=== PATIENT | female | born 1960 | race Caucasian/White ===

== ENCOUNTER 2020-08-21 20:23 | Emergency (ER) | payer OTHER ==
[2020-08-21] MEDS ORDERED: Sodium Chloride 0.9% 1000 ML 1,000 ML IV STA (21:54)
[2020-08-21 22:00] VITALS: PULSE 113
[2020-08-21] MEDS ORDERED: Sodium Chloride 0.9% 1000 ML 1,000 ML ONE (22:24)
[2020-08-21 22:44] LABS: Absolute Neutrophil Ct (ANC) 13.23 (1.4-6.9); BASOPHIL % 0.2 % (0.0-0.4); Basophil (Absolute #) 0.04 (0-0.4); Eosinophil % 0.6 % (0.00-5.0); Hematocrit 41.5 % (35-47); Hemoglobin 13.6 gm/dl (12.0-16.0); Lymphocyte (Absolute #) 1.49 (1.0-4.6); Lymphocytes % 9.2 % (24.0-44.0); Mean Cell Volume 98.3 fl (78-100); Mean Corpuscular Hemoglobin 32.2 pg (26-32); Mean Corpuscular Hgb Concent. 32.8 g/dl (32-36); Mean Platelet Volume 10.3 fl (7.5-11.0); Monocyte (Absolute #) 1.27 (0.0-1.3); Monocytes % 7.9 % (0.0-12.0); Neutrophil % 82.1 % (36.0-66.0); Platelet Count 355 K/mm3 (150-450); Red Blood Count 4.22 M/mm3 (4.1-5.4); Red Cell Distribution Width 13.1 % (11.5-14.0); White Blood Count 16.1 K/mm3 (4.0-10.5)
[2020-08-21 22:49] LABS: ALBUMIN 4.3 g/dL (3.5-5.0); ALKALINE PHOSPHATASE 88 U/L (38-126); ANION GAP 14.9 MEQ/L (5-15); BLOOD UREA NITROGEN 16 mg/dL (7-17); CHLORIDE 101 mmol/L (98-107); Calcium 9.5 mg/dL (8.4-10.2); Carbon Dioxide 27 mmol/L (22-30); Creatinine 1 0.66 mg/dL (0.52-1.04); EST GLOMERULAR FILTRATION RATE > 60.0 ML/MIN; Glucose 174 mg/dL (74-106); Potassium 3.7 mmol/L (3.5-5.1); SGOT/AST 25 U/L (14-36); SGPT/ALT 15 U/L (0-35); SODIUM 139 mmol/L (137-145); Total Protein 7.4 g/dL (6.3-8.2)
[2020-08-21 22:55] LABS: Appearance SLIGHTLY CLOUDY (CLEAR); Bacteria RARE /HPF (NEGATIVE); Bilirubin NEGATIVE (NEGATIVE); Blood SMALL Ery/ul (0-5); Glucose NEGATIVE (NEGATIVE); Ketones NEGATIVE (NEGATIVE); Leukocyte Esterase MODERATE (NEGATIVE); Mucus SLIGHT /HPF (NEGATIVE); Nitrite POSITIVE (NEGATIVE); Protein,Urine Dip NEGATIVE (Negative); Specific Gravity 1.009 (1.005-1.025); Urobilinogen 2 mg/dL (0-1); WBC >100 /HPF (0-5)
--- NOTE | 2020-08-21 23:35 | ERPHSYRPT ---
- History of Present Illness Time Seen by Provider: 08/21/20 21:10 Source: patient Exam Limitations: no limitations Patient Subjective Stated Complaint: pt states "I have the chills since last night." Triage Nursing Assessment: pt ambulated into the er; pt is axo x4; c/o chills; pt states that she just had a tattoo yesterday; pt states that she had a bladder lift on august 12, pt states that she had f/u appointment with the surgeon that did the procedure on wednesday; pt states that she felt fine until last night; pt states that she had a new tatto done last night; pt state that they put a clear film over the top of it and feels like she is allergic to it; tattoo is on the rt back/ shoulder region; area is not reddened or swollen; pt denies itching at site of tattoo; no abnormalities present to vagina; single stitch present at in vagina; vitals wnl; pt denies pain; pt states that she was N/V; pt denies diarrhea Physician History: Patient is a 60-year-old female presents to our ED with complaints of chills that she has been experiencing intermittently for the past 2 nights. Patient recently had a tattoo placed at her right shoulder blade less than 1 week ago. The tattoo was covered with a Tegaderm-like film and treat it with lidocaine. Patient concerned that she may be experiencing allergic reaction to this film and or possibly the topical lidocaine. Patient denies chest pain. No nausea or vomiting. No heart palpitations. No syncope. No dizziness. Patient had a bladder lift on . Patient followed up with her surgeon last Wednesday. The procedure at the surgical site was healing well. Patient tattoo site does not appear to be infected or irritated. No associated chest pain. Timing/Duration: yesterday Severity: mild Modifying Factors: Improves With: nothing Associated Symptoms: denies symptoms Allergies/Adverse Reactions: Iodinated Contrast Media Allergy (Verified 08/21/20 21:01) Hives triamcinolone [From Kenalog] Allergy (Verified 08/21/20 21:01) Hives Home Medications: Aspirin 81 mg PO 08/21/20 [History] Gabapentin 300 mg [Neurontin 300 mg] 300 mg PO 08/21/20 [History] Metformin HCl 500 mg [Glucophage 500 MG] 500 mg PO 08/21/20 [History] Naproxen 500 mg [Naprosyn 500 MG] 500 mg PO 08/21/20 [History] Tizanidine HCl 2 mg PO 08/21/20 [History] Hx Tetanus, Diphtheria Vaccination/Date Given: Yes Hx Influenza Vaccination/Date Given: Yes Hx Pneumococcal Vaccination/Date Given: Yes Travel Risk - International Travel Have you traveled outside of the country in past 3 weeks: No - Coronavirus Screening Are you exhibiting any of the following symptoms?: No Close contact with a COVID-19 positive Pt in past 14-21 Days: No - Vaccine Status Have you recieved a Covid-19 vaccination: Yes [employer] - Vaccination Dates Date of 2cond Vaccination (if applicable): 03/13/20 - Review of Systems Constitutional: No Symptoms, No Fever, No Chills Eyes: No Symptoms Ears, Nose, & Throat: No Symptoms Respiratory: No Symptoms, No Cough, No Dyspnea Cardiac: No Symptoms, No Chest Pain, No Edema, No Syncope Abdominal/Gastrointestinal: No Symptoms, No Abdominal Pain, No Nausea, No Vomiting, No Diarrhea Genitourinary Symptoms: No Symptoms, No Dysuria Musculoskeletal: No Symptoms, No Back Pain, No Neck Pain Skin: No Symptoms, No Rash Neurological: No Symptoms, No Dizziness, No Focal Weakness, No Sensory Changes Psychological: No Symptoms Endocrine: No Symptoms Hematologic/Lymphatic: No Symptoms Immunological/Allergic: No Symptoms All Other Systems: Reviewed and Negative - Past Medical History Pertinent Past Medical History: Yes Neurological History: Peripheral Neuropathy ENT History: No Pertinent History Cardiac History: No Pertinent History Respiratory History: No Pertinent History Endocrine Medical History: Diabetes Type II Musculoskeletal History: No Pertinent History GI Medical History: No Pertinent History History: No Pertinent History Psycho-Social History: No Pertinent History Female Reproductive Disorders: No Pertinent History - Past Surgical History Past Surgical History: Yes Gastrointestinal: Cholecystectomy Musculoskeletal: Orthopedic Surgery Female Surgical History: Hysterectomy Other Surgical History: neck surgery - Social History Smoking Status: Current every day smoker Exposure to second hand smoke: Yes Drug Use: none Patient Lives Alone: No - Female History Hx Now: No - Nursing Vital Signs Nursing Vital Signs: Initial Vital Signs Temperature 99.3 F 08/21/20 21:05 Pulse Rate 113 H 08/21/20 21:05 Respiratory Rate 18 08/21/20 21:05 Blood Pressure 122/71 08/21/20 21:05 O2 Sat by Pulse Oximetry 97 08/21/20 21:05 - Physical Exam General Appearance: no apparent distress, alert Eye Exam: PERRL/EOMI, eyes nml inspection Ears, Nose, Throat Exam: normal ENT inspection, TMs normal, pharynx normal, moist mucous membranes Neck Exam: normal inspection, non-tender, supple, full range of motion Respiratory Exam: normal breath sounds, lungs clear, No respiratory distress Cardiovascular Exam: regular rate/rhythm, normal heart sounds, normal peripheral pulses Gastrointestinal/Abdomen Exam: soft, normal bowel sounds, other (No CVA tenderness.), No tenderness, No mass Pelvic Exam: other (Visual pelvic exam performed with RN. The site appears to be well-healed. A suture is intact. No cellulitis. No signs of infection no drainage. Patient denies vaginal discharge or drainage.) Back Exam: normal inspection, normal range of motion, No CVA tenderness, No vertebral tenderness Extremity Exam: normal inspection, normal range of motion, pelvis stable, other (The tattoo located at the right posterior shoulder is healing well. A transparent film is applied. No signs of irritation or allergic reaction.) Neurologic Exam: alert, oriented x 3, cooperative, normal mood/affect, nml cerebellar function, nml station & gait, sensation nml, No motor deficits Skin Exam: normal color, warm, dry, No rash Lymphatic Exam: No adenopathy SpO2 Interpretation: normal SpO2: 97 O2 Delivery: Room Air - Course Nursing assessment & vital signs reviewed: Yes Ordered Tests: Active Orders 24 hr Category Date Time Status Classroom Aide STAT Care 08/21/20 21:55 Active EKG-ER Only STAT Care 08/21/20 21:54 Active IV Insertion STAT Care 08/21/20 21:54 Active Pulse Oximetry (ED) STAT Care 08/21/20 21:54 Active CBC W DIFF Stat Lab 08/21/20 22:30 Completed CMP Stat Lab 08/21/20 22:30 Completed CULTURE,URINE Stat Lab 08/21/20 22:37 Received Lactic Acid Stat Lab 08/21/20 22:30 Completed Lactic Acid Urgent Lab 08/22/20 00:00 Completed TROPONIN Q3H Lab 08/21/20 22:30 Completed TROPONIN Q3H Lab 08/22/20 01:00 Ordered TROPONIN Q3H Lab 08/22/20 04:00 Ordered TROPONIN Q3H Lab 08/22/20 07:00 Ordered TROPONIN Q3H Lab 08/22/20 10:00 Ordered UA W/RFX UR CULTURE Stat Lab 08/21/20 22:37 Completed Medication Summary Discontinued Medications Generic Name Dose Route Start Last Admin Trade Name Altaf PRN Reason Stop Dose Admin Ciprofloxacin 500 mg 08/22/20 00:02 Cipro 500 Mg PO 08/22/20 00:03 ONCE STA Ciprofloxacin Confirm 08/22/20 00:15 Cipro 500 Mg Administered 08/22/20 00:16 Dose 500 mg .ROUTE .STK-MED ONE Sodium Chloride 1,000 mls @ 999 mls/hr 08/21/20 21:54 08/21/20 22:54 Sodium Chloride 0.9% 1000 Ml IV 08/21/20 22:54 Infused .Q1H1M STA Infusion Sodium Chloride Confirm 08/21/20 22:24 Sodium Chloride 0.9% 1000 Ml Administered 08/21/20 22:25 Dose 1,000 mls @ ud .ROUTE .STK-MED ONE Ceftriaxone Sodium/Dextrose 1 g in 50 mls @ 100 mls/hr 08/21/20 23:40 Rocephin 1 Gm-D5w 50 Ml Bag IV 08/22/20 00:09 STAT STA Lab/Rad Data: Laboratory Result Diagrams 08/21/20 22:30 08/21/20 22:30 Laboratory Results 08/22/20 08/21/20 08/21/20 Range/Units 00:00 22:37 22:30 WBC (4.0-10.5) K/mm3 RBC (4.1-5.4) M/mm3 Hgb (12.0-16.0) gm/dl Hct (35-47) % MCV (78-100) fl MCH (26-32) pg MCHC (32-36) g/dl RDW (11.5-14.0) % Plt Count (150-450) K/mm3 MPV (7.5-11.0) fl Gran % (36.0-66.0) % Eos # (Auto) (0-0.5) Absolute Lymphs (auto) (1.0-4.6) Absolute Monos (auto) (0.0-1.3) Lymphocytes % (24.0-44.0) % Monocytes % (0.0-12.0) % Eosinophils % (0.00-5.0) % Basophils % (0.0-0.4) % Absolute Granulocytes (1.4-6.9) Basophils # (0-0.4) Sodium (137-145) mmol/L Potassium (3.5-5.1) mmol/L Chloride (98-107) mmol/L Carbon Dioxide (22-30) mmol/L Anion Gap (5-15) MEQ/L BUN (7-17) mg/dL Creatinine (0.52-1.04) mg/dL Estimated GFR ML/MIN Glucose (74-106) mg/dL Lactic Acid 1.0 (0.4-2.0) Calcium (8.4-10.2) mg/dL Total Bilirubin (0.2-1.3) mg/dL AST (14-36) U/L ALT (0-35) U/L Alkaline Phosphatase (38-126) U/L Troponin I < 0.012 (0.000-0.034) ng/mL Serum Total Protein (6.3-8.2) g/dL Albumin (3.5-5.0) g/dL Urine Color YELLOW (YELLOW) Urine Appearance SLIGHTLY CLOUDY (CLEAR) Urine pH 7.0 (5-6) Ur Specific Oden 1.009 (1.005-1.025) Urine Protein NEGATIVE (Negative) Urine Ketones NEGATIVE (NEGATIVE) Urine Blood SMALL (0-5) Swapnil/ul Urine Nitrite POSITIVE (NEGATIVE) Urine Bilirubin NEGATIVE (NEGATIVE) Urine Urobilinogen 2 (0-1) mg/dL Ur Leukocyte Esterase MODERATE (NEGATIVE) Urine WBC (Auto) >100 (0-5) /HPF Urine RBC (Auto) 3-5 (0-2) /HPF U Epithel Cells (Auto) NONE (FEW) /HPF Urine Bacteria (Auto) RARE (NEGATIVE) /HPF Urine Mucus (Auto) SLIGHT (NEGATIVE) /HPF Urine Culture Reflexed YES (NO) Urine Glucose NEGATIVE (NEGATIVE) mg/dL 08/21/20 08/21/20 08/21/20 Range/Units 22:30 22:30 22:30 WBC 16.1 H (4.0-10.5) K/mm3 RBC 4.22 (4.1-5.4) M/mm3 Hgb 13.6 (12.0-16.0) gm/dl Hct 41.5 (35-47) % MCV 98.3 (78-100) fl MCH 32.2 H (26-32) pg MCHC 32.8 (32-36) g/dl RDW 13.1 (11.5-14.0) % Plt Count 355 (150-450) K/mm3 MPV 10.3 (7.5-11.0) fl Gran % 82.1 H (36.0-66.0) % Eos # (Auto) 0.10 (0-0.5) Absolute Lymphs (auto) 1.49 (1.0-4.6) Absolute Monos (auto) 1.27 (0.0-1.3) Lymphocytes % 9.2 L (24.0-44.0) % Monocytes % 7.9 (0.0-12.0) % Eosinophils % 0.6 (0.00-5.0) % Basophils % 0.2 (0.0-0.4) % Absolute Granulocytes 13.23 H (1.4-6.9) Basophils # 0.04 (0-0.4) Sodium 139 (137-145) mmol/L Potassium 3.7 (3.5-5.1) mmol/L Chloride 101 (98-107) mmol/L Carbon Dioxide 27 (22-30) mmol/L Anion Gap 14.9 (5-15) MEQ/L BUN 16 (7-17) mg/dL Creatinine 0.66 (0.52-1.04) mg/dL Estimated GFR > 60.0 ML/MIN Glucose 174 H (74-106) mg/dL Lactic Acid 2.3 H (0.4-2.0) Calcium 9.5 (8.4-10.2) mg/dL Total Bilirubin 0.40 (0.2-1.3) mg/dL AST 25 (14-36) U/L ALT 15 (0-35) U/L Alkaline Phosphatase 88 (38-126) U/L Troponin I (0.000-0.034) ng/mL Serum Total Protein 7.4 (6.3-8.2) g/dL Albumin 4.3 (3.5-5.0) g/dL Urine Color (YELLOW) Urine Appearance (CLEAR) Urine pH (5-6) Ur Specific Oden (1.005-1.025) Urine Protein (Negative) Urine Ketones (NEGATIVE) Urine Blood (0-5) Swapnil/ul Urine Nitrite (NEGATIVE) Urine Bilirubin (NEGATIVE) Urine Urobilinogen (0-1) mg/dL Ur Leukocyte Esterase (NEGATIVE) Urine WBC (Auto) (0-5) /HPF Urine RBC (Auto) (0-2) /HPF U Epithel Cells (Auto) (FEW) /HPF Urine Bacteria (Auto) (NEGATIVE) /HPF Urine Mucus (Auto) (NEGATIVE) /HPF Urine Culture Reflexed (NO) Urine Glucose (NEGATIVE) mg/dL - Progress Progress: improved Progress Note: Work-up reveals a leukocytosis a lactic acid of 2.3 and a significant urinary tract infection. Patient has no CVA tenderness. No fever. Patient's IV fluid infiltrated. The IV was removed. We attempted to replace it so that we can administer the remaining fluids and recheck lactic acid but patient refused. Patient was advised a repeat lactic acid was necessary however patient wants to go home. She does not want the IV reinserted. We will treat patient with oral antibiotics. We will discharge patient on oral antibiotics as well. Patient will require early outpatient follow-up within 48 hours. Patient voices no other complaints or concerns at this time. 08/21/20 23:45 08/22/20 00:26 Patient reconsidered and agreed to have lactic acid redraw. Repeat lactic acid 1.0. Counseled pt/family regarding: lab results, diagnosis, need for follow-up - Departure Departure Disposition: Home Clinical Impression: Lactic acidosis, UTI (urinary tract infection), Leukocytosis Condition: Stable Critical Care Time: No Referrals: JAYNE DODD DEWAXER [Primary Care Provider] - Instructions: Urinary Tract Infections in Adults Additional Instructions: Discharge/Care Plan ANDREA GRANT was seen on 08/21/20 in the Emergency Room. The patient was counseled regarding Diagnosis,Lab results, Imaging studies, need for follow up and when to return to the Emergency Room. Prescriptions given: Discharge Note I have spoken with the patient and/or caregivers. I have explained the patient's condition, diagnosis and treatment plan based on the information available to me at this time. I have answered the patient's and/or caregiver's questions and addressed any concerns. The patient and/or caregivers have as good understanding of the patient's diagnosis, condition and treatment plan as can be expected at this point. The vital signs have been stable. The patient's condition is stable and appropriate for discharge from the emergency department. The patient will pursue further outpatient evaluation with the primary care physician or other designated or consulting physician as outlined in the sarkis smith instructions. The patient and/or caregivers are agreeable to this plan of care and follow-up instructions have been explained in detail. The patient and/or caregivers have received these instruction. The patient/and or caregivers are aware that any significant change in condition or worsening of symptoms should prompt an immediate return to this or the closest emergency department or call 911. Prescriptions: Levofloxacin [Levaquin 500 MG Tablet] 500 mg PO DAILY 7 Days #7 tablet
[2020-08-21] MEDS ORDERED: ROCEPHIN 1 Gm-D5w 50 ml Bag** 1 G/50 ML IVPB IV STA (23:40)
[2020-08-21 23:51] VITALS: BP 116/60
[2020-08-22] MEDS ORDERED: Cipro 500 MG PO STA (00:02)
[2020-08-22] MEDS ORDERED: Cipro 500 MG ONE (00:15)
[2020-08-22 00:25] VITALS: O2SAT 97
== END 2020-08-22 00:36 | disposition home or self-care (01) ==
LOC: ED 20:23
DX: E87.2 Acidosis (principal); N39.0 Urinary tract infection, site not specified; D72.829 Elevated white blood cell count, unspecified
CPT/HCPCS: 36415; 80053; 81001; 83605; 84484; 85025; 87077; 87086; 87186; 96360; 99284; A9270-GY